=== PATIENT | male | born 1980 | race Caucasian/White ===

== ENCOUNTER 2017-07-03 10:31 | Emergency (ER) | payer OTHER ==
[2017-07-03] MEDS ORDERED: DOXYcycline CAP(*) 100 MG PO ONE (12:51)
[2017-07-03 13:08] VITALS: BP 106/71
--- NOTE | 2017-07-03 13:08 | UC ---
Skin Complaint HPI - HPI Summary HPI Summary: Tick on left side of back believes it was attached for at least 24 hours or longer - History of Current Complaint Chief Complaint: [facility]CSkin Time Seen by Provider: 07/03/17 12:47 Stated Complaint: TICK Hx Obtained From: Patient Onset/Duration: Sudden Onset Skin Exposure Onset/Duration: Hours Ago - 24 +/- hours ago Current Severity: None Character: Redness Aggravating Factor(s): Nothing Alleviating Factor(s): Nothing Associated Signs & Symptoms: Positive: Negative Related History: Possible Reaction to: Insect - Allergy/Home Medications Allergies/Adverse Reactions: Allergies Allergy/AdvReac Type Severity Reaction Status Date / Time No Known Allergies Allergy Verified 07/03/17 10:54 Home Medications: Home Medications NK [No Home Medications Reported] 07/03/17 [History Confirmed 07/03/17] Review of Systems Constitutional: Negative Skin: Negative, Other - Tick on left side of mid back Eyes: Negative ENT: Negative Respiratory: Negative Cardiovascular: Negative Gastrointestinal: Negative Genitourinary: Negative Motor: Negative Neurovascular: Negative Musculoskeletal: Negative Neurological: Negative Psychological: Negative Is Patient Immunocompromised?: No All Other Systems Reviewed And Are Negative: Yes PMH/Surg Hx/FS Hx/Imm Hx Previously Healthy: Yes - Surgical History Surgical History: None Surgery Procedure, Year, and Place: hernia 2009 - Family History Known Family History: Positive: None - Social History Occupation: Employed Full-time Lives: With Family Alcohol Use: Occasionally Substance Use Type: None Smoking Status (MU): Never Smoked Tobacco Physical Exam Triage Information Reviewed: Yes Appearance: Well-Appearing, No Pain Distress, Well-Nourished Vital Signs: Initial Vital Signs Temp 97.6 F 07/03/17 10:50 Pulse 56 07/03/17 10:50 Resp 16 07/03/17 10:50 BP 108/62 07/03/17 10:50 Pulse Ox 100 07/03/17 10:50 Vital Signs Reviewed: Yes Eye Exam: Normal Eyes: Positive: Conjunctiva Clear ENT Exam: Normal ENT: Positive: Normal ENT inspection, Hearing grossly normal. Negative: Nasal congestion, Trismus, Muffled voice, Hoarse voice Dental Exam: Normal Neck exam: Normal Neck: Positive: Supple, Nontender Respiratory Exam: Normal Respiratory: Positive: No respiratory distress, No accessory muscle use Cardiovascular Exam: Normal Cardiovascular: Positive: RRR, Pulses Normal, Brisk Capillary Refill Musculoskeletal Exam: Normal Musculoskeletal: Positive: Strength Intact, ROM Intact, No Edema Neurological Exam: Normal Neurological: Positive: Alert, Muscle Tone Normal Psychological Exam: Normal Skin Exam: Normal Skin: Positive: Other - tick on left side of mid back Re-Evaluation - Re-Evaluation First Eval Change: Improved - Tick removed intact Course/Dx - Course Course Of Treatment: Soap and water wash, observe for s/s of Lyme disease, Doxy now - Diagnoses Provider Diagnoses: Tick Exposure, Lyme PEP Discharge - Discharge Plan Condition: Stable Disposition: HOME Patient Education Materials: Tick Bite (ED) Referrals: Mendoza Hyde MD [Primary Care Provider] - If Needed
== END 2017-07-03 13:08 | disposition home or self-care (01) ==
LOC: UCEAST 10:31
DX: S20.462A Insect bite (nonvenomous) of left back wall of thorax, initial encounter (principal); W57.XXXA Bitten or stung by nonvenomous insect and other nonvenomous arthropods, initial encounter; Y93.9 Activity, unspecified; Y92.9 Unspecified place or not applicable
CPT/HCPCS: 99212; A9270-GY; G0463